=== PATIENT | female | born 1955 | race Caucasian/White ===

== ENCOUNTER 2018-09-21 08:07 | Outpatient (CLI) | payer MEDICARE ==
--- NOTE | 2018-09-21 08:48 | BD ---
EXAM: DEXA bone density examination HISTORY: 63-year-old postmenopausal female for screening COMPARISON: 06/06/2014 FINDINGS: L1--bone mineral density 0.818 g/sq cm; T score -1.6 L2--bone mineral density 0.849 g/sq cm; T score -1.6 L3--bone mineral density 0.825 g/sq cm; T score -2.4 L4--bone mineral density 0.802 g/sq cm; T score -2.4 Total L1-L4--bone mineral density 0.823 g/sq cm; T score -2.0 Left femoral neck--bone mineral density0.555; T score -2.6 Total proximal left femur--bone mineral density 0.816; T score -1.0 IMPRESSION: Osteopenia. When compared to the prior examination, the bone density in the hip has decre ased approximately 3% and the bone density in the spine is decreased proximally 4%.
== END 2018-09-21 08:08 | disposition home or self-care (01) ==
LOC: BICMAMMO 08:07
PROVIDERS: ATTEND Obstetrics & Gynecology
DX: Z13.820 Encounter for screening for osteoporosis (principal); M85.89 Other specified disorders of bone density and structure, multiple sites
CPT/HCPCS: 77080